=== PATIENT | male | born 1980 | race Caucasian/White ===

== ENCOUNTER 2020-04-26 11:35 | Emergency (ER) | payer SELFPAY ==
[~2020-04-26] VITALS: Ht 185.4 cm; Wt 79.0 kg
[~2020-04-26 11:35] MED LIST: HYDR-3164 PO
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
--- NOTE | 2020-04-26 12:37 | RAD ---
CT head and cervical spine without contrast History: Fall from a tree 2 days ago,head and neck pain Technique: Noncontrast CT imaging was performed of the head and cervical spine. Multiplanar reconstruction images are submitted. Exposure: One or more of the following individualized dose reduction techniques were utilized for this examination: 1. Automated exposure control 2. Adjustment of the mA and/or kV according to patient size 3. Use of iterative reconstruction technique. Head CT Comparison: None Findings: No acute calvarial abnormality is identified. Visualized paranasal sinuses and mastoid air cells are aerated. There are foci of encephalomalacia of the left cerebellum. Ventricular size is within normal limits, proportionate to sulcal spaces. There is no midline shift. As seen on image 21 series 2, there is appearance of some thin hyperdensity paralleling the plane of the calvarium in the right parietal region about 2 to 3 mm transverse although there appears to be some extent of the parenchyma through this region. There is also appearance of similar findings on the left in the temporal parietal region, greatest transverse thickness about 4 mm image 16 series 2. No acute parenchymal hemorrhage is identified. Impression: 1. There are some foci of hyperdensity paralleling the plane of the calvarium in the parietal temporal regions bilaterally. While findings could be artifactual, it would be difficult to exclude small subdural hematomas in these regions, could be more accurately evaluated by MRI. 2. 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 Cervical spine CT Comparison: None Findings: No acute cervical spine fracture is identified. Vertebral body stature is maintained. There is very minimal posterior subluxation of C6 relative to C7. There is ezct-ei-ddklkqdk degenerative disc disease at C6-7 and posteriorly at C3-4 and C4-5, minimally at C5-6. There is spondylosis variably C3-4 through C6-7 and minimally at C2-3. There is likely borderline central canal stenosis C6-7 by disc osteophyte complex and bulge. There is some variable multilevel cervical facet degenerative change, also uncovertebral degenerative change greatest C3-4 and C6-7. There is mild neural foramina compromise bilaterally greater on the left at C3-4. There is severe narrowing of the left C6-7 neural foramen due to facet and uncovertebral degenerative change. Atlanto-axial distance is within normal limits. There is appropriate alignment of lateral masses of C1 relative to C2. Occipital condylar-C1 relationship is maintained. There is some emphysema of the visualized lung apices. There is mild levoscoliosis of cervical spine. Impression: 1. No acute cervical spine fracture is identified. 2. There is multilevel cervical degenerative disc disease and spondylosis. There is probable borderline central canal stenosis at C6-7. 3. Facet and uncovertebral degenerative change contributes to severe narrowing of the left C6-7 neural foramen, mild neural foramina compromise bilaterally at C3-4. Results were discussed with ALEXIA TALAMANTES at 04/26/2020 12:34 PM. Oblique Electronically signed by: Tacos Carroll MD (04/26/2020 12:35 PM) [facility]
--- NOTE | 2020-04-26 14:56 | RAD ---
MRI Brain without contrast History:Possible subdural hematoma, Technique: Multiplanar, multisequential noncontrast MR imaging was performed of the brain. Comparison: CT head this same day Findings: There is no evidence of recent infarct or cytotoxic edema. The ventricles, sulci, and cisterns are within normal limits in size and configuration. There is no significant midline shift, intraaxial mass effect, or focal abnormal extra-axial fluid collection. There are again foci of encephalomalacia of the left cerebellum, largest about 1.4 cm. There are few tiny foci of T2 and FLAIR hyperintense signal of the supratentorial white matter as may be seen with tiny foci of nonspecific gliosis. There is preservation of the major intracranial flow-voids at the skull base. The cerebellar tonsils are normal in location. There is no significant abnormality of the pineal gland or pituitary gland. There is patchy ahmk-li-qcyosstu ethmoid air cell and left sphenoid sinus mucosal thickening. There is thickening somewhat diffusely of the bilateral mastoid air cells.There is preserved marrow signal of the clivus. There is slightly disconjugate gaze. There is some increased CSF signal of the optic nerve sheaths bilaterally. Impression: 1. There is no subdural hematoma, findings on CT head apparently artifactual. There are foci again of encephalomalacia/old infarcts of the left cerebellum. There a few tiny foci of likely nonspecific gliosis of the supratentorial parenchyma. 2. There is ethmoid air cell and left sphenoid sinus mucosal thickening. 3. There is some increased CSF signal of the optic nerve sheaths bilaterally, nonspecific findings which may be incidental although can be associated with intracranial hypertension. Electronically signed by: Tacos Carroll MD (04/26/2020 2:53 PM) [facility]
[2020-04-26 15:00] VITALS: BP 112/74
[2020-04-26] MEDS ORDERED: CYCL10TA2 PO (15:21)
[2020-04-26] MEDS ORDERED: LIDO700A21 TP (15:21)
== END 2020-04-26 17:07 | disposition home or self-care (01) ==
LOC: ER 11:35
DX: S39.012A Strain of muscle, fascia and tendon of lower back, initial encounter (principal); S00.01XA Abrasion of scalp, initial encounter; R20.2 Paresthesia of skin; F17.200 Nicotine dependence, unspecified, uncomplicated; W18.39XA Other fall on same level, initial encounter; Y93.89 Activity, other specified; Y92.89 Other specified places as the place of occurrence of the external cause; Y99.8 Other external cause status
CPT/HCPCS: 70450; 70551; 72125; 72131; 96372; 99285; J2060

== ENCOUNTER 2020-12-22 21:28 | Emergency (ER) | payer SELFPAY ==
[~2020-12-22] VITALS: Ht 185.4 cm; Wt 81.8 kg
[~2020-12-22 21:28] MED LIST changes: +CYCL10TA2 PO; +LIDO700A21 TP
[2020-12-22 21:56] LABS: BASO # 0.1 x10^3/uL (0.0-0.2); BASO % 1 % (0-3); EOS # 0.1 x10^3/uL (0.0-0.7); EOS % 1 % (0-3); HEMATOCRIT 39.5 % (39.0-53.0); HEMOGLOBIN 13.7 g/dL (13.0-17.5); LYMPH # 2.2 x10^3/uL (1.0-4.8); LYMPH % 20 % (24-48); MEAN CORPUSCULAR HEMOGLOBIN 31 pg (25-35); MEAN CORPUSCULAR HGB CONC 35 g/dL (31-37); MEAN CORPUSCULAR VOLUME 88 fL (79-100); MONO # 0.7 x10^3/uL (0.0-1.1); MONO % 7 % (0-9); NEUT # 8.2 x10^3/uL (1.8-7.7); NEUT % 73 % (31-73); PLATELET COUNT 219 x10^3/uL (140-400); RED CELL DISTRIBUTION WIDTH 12.6 % (11.5-14.5); WHITE BLOOD COUNT 11.3 x10^3/uL (4.0-11.0)
[2020-12-22] MEDS ORDERED: IV NORMAL SALINE 1000ML BAG 1,000 ML IV SCH (22:00)
[2020-12-22 22:10] LABS: CALCIUM 8.8 mg/dL (8.5-10.1); CREATININE 1.4 mg/dL (0.7-1.3); GFR 56.1; POTASSIUM 3.6 mmol/L (3.5-5.1)
--- NOTE | 2020-12-22 22:14 | RAD ---
Exam: Right knee 3 views. Right tibia and fibula 2 views. Right ankle 3 views INDICATION: Right ankle pain TECHNIQUE: Frontal, lateral oblique views of the right knee and right ankle. Frontal and lateral view s of the right tibia Comparisons: None FINDINGS: Right knee: Bone mineralization is normal. No acute or healed fractures. Soft tissues are unremarkable. Joint spa anatoliy are well-maintained. Tib-fib: Bone mineralization is normal. No acute or healed fractures. Soft tissues are unremarkable. Joint spa anatoliy are well-maintained. Ankle: Soft tissue swelling overlying the anterior ankle. Bone mineralization is normal. Joint spaces are we ll-maintained. Soft tissues are unremarkable. IMPRESSION: 1. Soft tissue swelling overlying the anterior right ankle without underlying osseous abnormality id entified. 2. No acute osseous abnormality of the right tibia and fibula. 3. No acute osseous abnormality at the right knee. Electronically signed by: Clinton Ramos MD (12/22/2020 10:11 PM) [facility]
[2020-12-22 22:17] LABS: ALBUMIN 4.1 g/dL (3.4-5.0); ALBUMIN/GLOBULIN RATIO 1.5 (1.0-1.7); TOTAL BILIRUBIN 0.7 mg/dL (0.2-1.0); TOTAL PROTEIN 6.9 g/dL (6.4-8.2)
[2020-12-22] MEDS ORDERED: IOHEXOL 300 MG/ML 100ML VIAL. IV ONE (22:45)
[2020-12-22] MEDS ORDERED: CONTRAST GIVEN. MC PRN (22:45)
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
[2020-12-22] MEDS ORDERED: diphenhydrAMINE 50 MG/ML VIAL IVP ONE (23:00)
[2020-12-22] MEDS ORDERED: ACETAMINOPHEN 500 MG TABLET PO ONE (23:00)
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
[2020-12-23 01:21] VITALS: BP 102/67
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
== END 2020-12-23 01:45 | disposition left against medical advice (07) ==
LOC: ER 21:28
DX: S90.01XA Contusion of right ankle, initial encounter (principal); S37.009A Unspecified injury of unspecified kidney, initial encounter; F17.210 Nicotine dependence, cigarettes, uncomplicated; Z88.6 Allergy status to analgesic agent; Z88.8 Allergy status to other drugs, medicaments and biological substances; W18.39XA Other fall on same level, initial encounter; Y93.39 Activity, other involving climbing, rappelling and jumping off; Y92.89 Other specified places as the place of occurrence of the external cause; Y99.8 Other external cause status
CPT/HCPCS: 36415; 70450; 71260; 72125; 73562; 73590; 73610; 74177; 80053; 85025; 96361; 96374; 99285; G0480; J1200; J7030; Q9967